=== PATIENT | female | born 1970 | race Caucasian/White ===

== ENCOUNTER 2016-06-21 13:27 | Emergency (ER) | payer OTHER ==
[~2016-06-21] VITALS: Ht 160 cm; Wt 70.0 kg
[~2016-06-21 13:27] MED LIST: MELO15TA2 PO; ZYRT10TA12 PO
[2016-06-21 13:29] VITALS: BP 130/86; PULSE 98; RESP 14; TEMP 97.6; O2SAT 98
--- NOTE | 2016-06-21 15:27 | PD ---
HPI Chief Complaint: DIZZINESS/CHEST PAIN Time Seen by Provider: 15:20 Travel History International Travel<30 days: No Contact w/Intl Traveler<30days: No Traveled to known affect area: No History of Present Illness HPI Patient is a 45-year-old female presenting to emergency department for evaluation of dizziness, nausea, headache, weakness. Patient states she had an episode of dizziness yesterday where she'll end up lowering herself to the ground unable to get up for almost an hour. Patient reports vomiting today 4-5 times. Additionally she states that on Tuesday of last week she had an episode of chest pain that was relieved after 2 sublingual nitroglycerin. She was not evaluated for the chest pain. She is followed by Dr. Aguilar, security intern. Patient reports her headache is frontal in nature. She states that she just doesn't have a lot of energy and feels fatigued. PFSH Past Medical History Cardiovascular Problems: Yes (tachyarrhythmia) Headaches: Yes Hypertension: Yes ?: Not Family History Family Breast Cancer: No Family Myocardial Infarction: No (father with a history of heart disease) Family Hypercholesterolemia: No Social History Alcohol Use: Yes (occasionally) Tobacco Use: No Substance Use: No Allergies-Medications (Allergen,Severity, Reaction): Coded Allergies: No Known Allergies (Unverified , 08/05/12) Reported Meds & Prescriptions Reported Meds & Active Scripts Active Mobic (Meloxicam) 15 Mg Tab 1 Tab PO DAILYPRN NEEDED FOR PAIN Reported Zyrtec (Cetirizine HCl) 10 Mg Tab 10 Mg PO DAILY Review of Systems Except as stated in HPI: all other systems reviewed are Neg HENT: Positive: Headaches, Vertigo, Lightheadedness Cardiovascular: Positive: Chest Pain or Discomfort, Palpitations Gastrointestinal: Positive: Nausea Neurologic: Positive: Dizziness Physical Exam Narrative GENERAL: Well-developed, well-nourished, alert female. Resting comfortably in no acute distress. SKIN: Warm and dry. HEAD: Atraumatic. Normocephalic. EYES: Pupils equal and round. No scleral icterus. No injection or drainage. ENT: No nasal bleeding or discharge. Mucous membranes pink and moist. NECK: Trachea midline. No JVD. CARDIOVASCULAR: Regular rate and rhythm. No murmur appreciated. RESPIRATORY: No accessory muscle use. Clear to auscultation. Breath sounds equal bilaterally. GASTROINTESTINAL: Abdomen soft, non-tender, nondistended. Hepatic and splenic margins not palpable. MUSCULOSKELETAL: No obvious deformities. No clubbing. No cyanosis. No edema. NEUROLOGICAL: Awake and alert. No obvious cranial nerve deficits. Motor grossly within normal limits. Normal speech. PSYCHIATRIC: Appropriate mood and affect; insight and judgment normal. Data Data Last Documented VS Vital Signs Date Time Temp Pulse Resp B/P Pulse Ox O2 Delivery O2 Flow Rate FiO2 06/21/16 13:29 97.6 98 14 130/86 98 Room Air Orders Complete Blood Count With Diff (06/21/16 14:24) Comprehensive Metabolic Panel (06/21/16 14:24) Lipase (06/21/16 14:24) Electrocardiogram (06/21/16 14:24) MDM Medical Decision Making Medical Screen Exam Complete: Yes Emergency Medical Condition: Yes Interpretation(s) Vital Signs Date Time Temp Pulse Resp B/P Pulse Ox O2 Delivery O2 Flow Rate FiO2 06/21/16 13:29 97.6 98 14 130/86 98 Room Air Differential Diagnosis Vertigo versus acute sinusitis versus cardiac arrhythmia versus electrolyte abnormality versus TIA versus CVA versus other Narrative Course Patient is a 45-year-old female presenting to the emergency department for evaluation of dizziness, nausea, headache, chest pain. Patient has a history of a tachyarrhythmia and hypertension. Labs and imaging ordered and pending. Patient's vital signs are stable. Patient is neurologically intact. Care patient transferred to provider and medical pod when bed available. Kasia Bustamante Jun 21, 2016 15:27
--- NOTE | 2016-06-21 15:51 | PD ---
Physical Exam Date Seen by Provider: Jun 21, 2016 Time Seen by Provider: 15:50 Narrative Please refer to previous provider note. Patient was signed out to me for further care. 45 yr old female with no PMH here with c/o dizziness, nausea, vomiting and headache for 4 days. Patient says that she had an episode where her dizziness was so intense yesterday that she "gracefully sat down"on her kitchen floor. She reports a headache 6 out of 10 on pain scale, located in the frontal and temporal region of her head. The headache is somewhat constant and has not subsided for the past 4 days. She does have a history of migraines, but states she has not had one in years. She denies any new stressors in her life. In regards to the dizziness, she says she does not have vertigo and the room nor herself is spinning. She says, "It feels like when you're straining your eyes and become dizzy." She has not taken any diqz-pin-ywwesmm medications because she was afraid that it would come out with her nausea and vomiting. Today she had a total of 5 episodes of vomiting. She was previously seen at Dr. Wan' s office and told she would need a CT scan of her brain. However she decided to go home and was then forced to come to the emergency room by her sister, who is present with her today. At time of examination she denies any chest pain, shortness of breath, diaphoresis, or abdominal pain. Patient apparently had some angina last week and had to take nitro. She follows with Dr Aguilar for cardiology and states she has had stress tests in the past. She is not having any chest pain today. Her main issue is the headache and nausea. Data Data Last Documented VS Vital Signs Date Time Temp Pulse Resp B/P Pulse Ox O2 Delivery O2 Flow Rate FiO2 06/21/16 15:48 18 06/21/16 13:29 97.6 98 130/86 98 Room Air Orders Complete Blood Count With Diff (06/21/16 14:24) Comprehensive Metabolic Panel (06/21/16 14:24) Lipase (06/21/16 14:24) Electrocardiogram (06/21/16 14:24) Ct Brain W/O Iv Contrast(Rout) (06/21/16 ) Ondansetron Inj (Zofran Inj) (06/21/16 16:15) Ckmb (Isoenzyme) Profile (06/21/16 14:24) Troponin I (06/21/16 14:24) Diphenhydramine Inj (Benadryl Inj) (06/21/16 16:30) Metoclopramide Inj (Reglan Inj) (06/21/16 16:30) Labs Laboratory Tests Test 06/21/16 15:49 White Blood Count 10.4 TH/MM3 Red Blood Count 4.65 MIL/MM3 Hemoglobin 13.3 GM/DL Hematocrit 40.5 % Mean Corpuscular Volume 87.1 FL Mean Corpuscular Hemoglobin 28.6 PG Mean Corpuscular Hemoglobin 32.8 % Concent Red Cell Distribution Width 14.2 % Platelet Count 492 TH/MM3 Mean Platelet Volume 7.3 FL Neutrophils (%) (Auto) 59.5 % Lymphocytes (%) (Auto) 28.6 % Monocytes (%) (Auto) 10.3 % Eosinophils (%) (Auto) 1.0 % Basophils (%) (Auto) 0.6 % Neutrophils # (Auto) 6.2 TH/MM3 Lymphocytes # (Auto) 3.0 TH/MM3 Monocytes # (Auto) 1.1 TH/MM3 Eosinophils # (Auto) 0.1 TH/MM3 Basophils # (Auto) 0.1 TH/MM3 CBC Comment DIFF FINAL Differential Comment Sodium Level 139 MEQ/L Potassium Level 4.1 MEQ/L Chloride Level 108 MEQ/L Carbon Dioxide Level 23.7 MEQ/L Anion Gap 7 MEQ/L Blood Urea Nitrogen 10 MG/DL Creatinine 0.83 MG/DL Estimat Glomerular Filtration 75 ML/MIN Rate Random Glucose 84 MG/DL Calcium Level 8.9 MG/DL Total Bilirubin 0.4 MG/DL Aspartate Amino Transf 16 U/L (AST/SGOT) Alanine Aminotransferase 17 U/L (ALT/SGPT) Alkaline Phosphatase 71 U/L Total Creatine Kinase 68 U/L Troponin I LESS THAN 0.02 NG/ML Total Protein 7.6 GM/DL Albumin 3.9 GM/DL Lipase 156 U/L [facility] Medical Record Reviewed: Yes Supervised Visit with ED: No Differential Diagnosis viral gastroenteritis, Mnire's disease, Narrative Course 45 yr old female with no PMH here with c/o dizziness, nausea, vomiting and headache for 4 days. Patient says that she had an episode where her dizziness was so intense yesterday that she "gracefully sat down"on her kitchen floor. She reports a headache 6 out of 10 on pain scale, located in the frontal and temporal region of her head. The headache is somewhat constant and has not subsided for the past 4 days. She does have a history of migraines, but states she has not had one in years. She denies any new stressors in her life. In regards to the dizziness, she says she does not have vertigo and the room nor herself is spinning. She says, "It feels like when you're straining your eyes and become dizzy." She has not taken any kyvx-liy-gxqvjbh medications because she was afraid that it would come out with her nausea and vomiting. Today she had a total of 5 episodes of vomiting. She was previously seen at Dr. Wan' s office and told she would need a CT scan of her brain. However she decided to go home and was then forced to come to the emergency room by her sister, who is present with her today. At time of examination she denies any chest pain, shortness of breath, diaphoresis, or abdominal pain. GENERAL: AAO x 3, no acute distress, Well-nourished, well-developed patient. SKIN: Warm and dry. No visible rashes or bruising. HEAD: Normocephalic and atraumatic. EYES: No scleral icterus. No injection or drainage. EOM intact, PERRLA ENT: No nasal drainage noted. Airway patent. B/L TM normal. NECK: Supple, trachea midline. No JVD. No adenopathy. CARDIOVASCULAR: Regular rate and rhythm without murmurs, gallops, or rubs. RESPIRATORY: Breath sounds equal bilaterally. No accessory muscle use. No rhonchi or rales. GASTROINTESTINAL: Abdomen soft, non-tender, nondistended. EXTREMITIES: No cyanosis or edema. BACK: Nontender without obvious deformity. No CVA tenderness. PSYCH: AAO x 3, normal affect. Patient seen and examined. Discussed with Dr. Ruiz. Recommend EKG, Labs and CT brain. CT brain WNL. Labs and EKG WNL. Differentials include migraine, viral sydnrome, less likely intracranial hemorrhage or brain mass Discussed findings with patient and her sister. Explained that we will send her home with zofran and Tylenol #3. Patient verbalized understanding of instructions, questions were answered, and thanked me for their care. I advised them if their condition worsens, please return to the nearest emergency room for further care. Diagnosis Primary Impression: Migraine Qualified Code: G43.109 - Migraine with aura and without status migrainosus, not intractable Additional Impression: Viral intestinal infection Patient Instructions: Acute Headache (ED), Acute Nausea and Vomiting (ED), General Instructions Additional Instruction: We have provided you with medications for nausea and headache. Please use as needed. Please follow up with your primary care provider in 1-3 days. Med/Other Pt SpecificInfo: Prescription(s) given Scripts Acetaminophen-Codeine (Tylenol-Codeine #3)300-30 mg Tab1 Tab PO BID PRN ( HEADACHE) #16 TAB Ref 0 Prov:Arpita Ruiz MD 06/21/16 Ondansetron Odt (Zofran Odt)8 Mg Tab8 Mg SL Q12H PRN (NAUSEA OR VOMITING) #20 TAB Ref 0 Prov:Kelsea Dukes 06/21/16 Disposition: 01 DISCHARGE HOME Condition: Stable Kelsea Dukes Jun 21, 2016 15:51
[2016-06-21] MEDS ORDERED: ONDANSETRON HCL 4 MG/2 ML VIAL IV PUSH ONE (16:15)
[2016-06-21 16:16] LABS: AUTOMATED NEUTROPHIL # 6.2 TH/MM3 (1.8-7.7); BASOPHIL # 0.1 TH/MM3 (0-0.2); BASOPHIL % 0.6 % (0.0-2.0); EOSINOPHIL # 0.1 TH/MM3 (0-0.4); HEMATOCRIT 40.5 % (35.0-46.0); HEMO FLAGS DIFF FINAL; LYMPH % 28.6 % (9.0-44.0); MEAN CELL VOLUME 87.1 FL (80.0-100.0); MEAN CORPUSCULAR HEMOGLOBIN 28.6 PG (27.0-34.0); MEAN CORPUSCULAR HGB CONC 32.8 % (32.0-36.0); MONO % 10.3 % (0.0-8.0); NEUT % 59.5 % (16.0-70.0); PLATELET COUNT 492 TH/MM3 (150-450); RED BLOOD COUNT 4.65 MIL/MM3 (4.00-5.30); RED CELL DISTRIBUTION WIDTH 14.2 % (11.6-17.2); WHITE BLOOD COUNT 10.4 TH/MM3 (4.0-11.0)
[2016-06-21] MEDS ORDERED: diphenhydrAMINE HCL 50 MG/ML VIAL IVP ONE (16:30)
[2016-06-21] MEDS ORDERED: METOCLOPRAMIDE HCL 10 MG/2 ML VIAL IVP ONE (16:30)
[2016-06-21 16:43] LABS: ALKALINE PHOSPHATASE 71 U/L (45-117); ALT (GPT) 17 U/L (10-53); ANION GAP 7 MEQ/L (5-15); AST (GOT) 16 U/L (15-37); BICARBONATE 23.7 MEQ/L (21.0-32.0); BLOOD UREA NITROGEN 10 MG/DL (7-18); CHLORIDE 108 MEQ/L (98-107); GLOMERULAR FILTRATION RATE 75 ML/MIN (>89); POTASSIUM 4.1 MEQ/L (3.5-5.1); SODIUM (NA) 139 MEQ/L (136-145); TOTAL BILIRUBIN ADULT 0.4 MG/DL (0.2-1.0)
[2016-06-21 16:44] LABS: CREATINE KINASE 68 U/L (26-192)
[2016-06-21] MEDS ORDERED: ZOFR8TAB4 SL (17:05)
[2016-06-21] MEDS ORDERED: TYLETAB34 PO (17:06)
--- NOTE | 2016-06-21 17:08 | PD ---
Data Data Last Documented VS Vital Signs Date Time Temp Pulse Resp B/P Pulse Ox O2 Delivery O2 Flow Rate FiO2 06/21/16 15:48 18 06/21/16 13:29 97.6 98 130/86 98 Room Air Orders Complete Blood Count With Diff (06/21/16 14:24) Comprehensive Metabolic Panel (06/21/16 14:24) Lipase (06/21/16 14:24) Electrocardiogram (06/21/16 14:24) Ct Brain W/O Iv Contrast(Rout) (06/21/16 ) Ondansetron Inj (Zofran Inj) (06/21/16 16:15) Ckmb (Isoenzyme) Profile (06/21/16 14:24) Troponin I (06/21/16 14:24) Diphenhydramine Inj (Benadryl Inj) (06/21/16 16:30) Metoclopramide Inj (Reglan Inj) (06/21/16 16:30) Labs Laboratory Tests Test 06/21/16 15:49 White Blood Count 10.4 TH/MM3 Red Blood Count 4.65 MIL/MM3 Hemoglobin 13.3 GM/DL Hematocrit 40.5 % Mean Corpuscular Volume 87.1 FL Mean Corpuscular Hemoglobin 28.6 PG Mean Corpuscular Hemoglobin 32.8 % Concent Red Cell Distribution Width 14.2 % Platelet Count 492 TH/MM3 Mean Platelet Volume 7.3 FL Neutrophils (%) (Auto) 59.5 % Lymphocytes (%) (Auto) 28.6 % Monocytes (%) (Auto) 10.3 % Eosinophils (%) (Auto) 1.0 % Basophils (%) (Auto) 0.6 % Neutrophils # (Auto) 6.2 TH/MM3 Lymphocytes # (Auto) 3.0 TH/MM3 Monocytes # (Auto) 1.1 TH/MM3 Eosinophils # (Auto) 0.1 TH/MM3 Basophils # (Auto) 0.1 TH/MM3 CBC Comment DIFF FINAL Differential Comment Sodium Level 139 MEQ/L Potassium Level 4.1 MEQ/L Chloride Level 108 MEQ/L Carbon Dioxide Level 23.7 MEQ/L Anion Gap 7 MEQ/L Blood Urea Nitrogen 10 MG/DL Creatinine 0.83 MG/DL Estimat Glomerular Filtration 75 ML/MIN Rate Random Glucose 84 MG/DL Calcium Level 8.9 MG/DL Total Bilirubin 0.4 MG/DL Aspartate Amino Transf 16 U/L (AST/SGOT) Alanine Aminotransferase 17 U/L (ALT/SGPT) Alkaline Phosphatase 71 U/L Total Creatine Kinase 68 U/L Troponin I LESS THAN 0.02 NG/ML Total Protein 7.6 GM/DL Albumin 3.9 GM/DL Lipase 156 U/L [facility] Supervised Visit with ED: Yes Narrative Course I, Dr. Ruiz, have reviewed the [place] practice practioner's documentation and am in agreement, met with the patient face to face, made the diagnosis, and the medical decision making was done by me. *My assessment and Findings: 45-year-old female with history of angina here with complaint of spells of lightheadedness, nausea, generalized weakness over the course the last week episodic symptoms. She has also had a single episode of substernal chest pain relieved after 2 nitroglycerin. She has "slight angina ", and had a negative stress test approximately 6-8 months ago[address] Follow[address] by Dr. Aguilar of cardiology. Her main complaint at this time is headache with nausea. Headache is bilateral, retro-orbital. No nocturnal symptoms, fevers, chills. Nonfocal neurologic examination, regular rate and rhythm on exam. Differential includes tension headache, cluster headache, migraine headache. My suspicion for intracranial mass lesion or intracranial hemorrhage is exceedingly low. With regards to her chest pain, patient states that this is typical for her to have periodic episodes for which she takes nitroglycerin. She would not have come to the emergency department that she not had her associated symptoms with headache, etc. Nonetheless, EKG and cardiac enzymes were obtained and negative. Discussed repeat stress testing with patient that as she last had one within the last 6-8 months patient does not want to stay for this which I think is reasonable. Remainder of her blood work was unremarkable. CT of the brain is pending, if negative, will discharged home with further symptomatic management for her headache and outpatient primary care follow-up. Scripts Ondansetron Odt (Zofran Odt)8 Mg Tab8 Mg SL Q12H PRN (NAUSEA OR VOMITING) #20 TAB Ref 0 Prov:Kelsea Dukes 06/21/16 Arpita Ruiz MD Jun 21, 2016 17:07
--- NOTE | 2016-06-21 17:28 | RADRPT ---
EXAM DATE/TIME: 06/21/2016 16:30 [place] COMPARISON: No previous studies available for comparison. INDICATIONS : Dizziness and cephalgia today. RADIATION DOSE: 56.35 CTDIvol (mGy) MEDICAL HISTORY : Hypertension. SURGICAL HISTORY : None. ENCOUNTER: Initial ACUITY: 1 day PAIN SCALE: 7/10 LOCATION: Bilateral head TECHNIQUE: Multiple contiguous axial images were obtained of the head. Using automated exposure control and adj ustment of the mA and/or kV according to patient size, radiation dose was kept as low as reasonably a chievable to obtain optimal diagnostic quality images. FINDINGS: CEREBRUM: The ventricles are normal for age. No evidence of midline shift, mass lesion, hemorrhage or acute in farction. No extra-axial fluid collections are seen. POSTERIOR FOSSA: The cerebellum and brainstem are intact. The 4th ventricle is midline. The cerebellopontine angle i s unremarkable. EXTRACRANIAL: The visualized portion of the orbits is intact. SKULL: The calvaria is intact. No evidence of skull fracture. CONCLUSION: Negative exam. Niko Sales MD on June 21, 2016 at 16:46 Board Certified Radiologist. This report was verified electronically.
--- NOTE | 2016-06-22 11:32 | EKG ---
Date Performed: 06/21/2016 Time Performed: 15:39:40 PTAGE: 45 years EKG: Sinus rhythm NORMAL ECG NO PREVIOUS TRACING DOCTOR: Hima Aguilar Interpretating Date/Time 06/22/2016 11:31:37
== END 2016-06-21 18:10 | disposition home or self-care (01) ==
LOC: NEPE 13:27
DX: G43.109 Migraine with aura, not intractable, without status migrainosus (principal); I20.9 Angina pectoris, unspecified; I10 Essential (primary) hypertension
CPT/HCPCS: 70450; 80053; 82550; 83690; 84484; 85025; 93005; 96374; 96375; 99285; J1200; J2405; J2765